=== PATIENT | female | born 2000 | race Caucasian/White ===

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

== ENCOUNTER 2021-07-19 23:48 | Emergency (ER) | payer SELFPAY ==
[~2021-07-19] VITALS: Ht 160 cm; Wt 64.4 kg
[~2021-07-19 23:48] MED LIST changes: +METH-313 PO
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
[2021-07-20] MEDS ORDERED: RX-NAPROXEN (NAPROSYN) 250 MG TAB PPK#4 PO STA (00:50)
[2021-07-20] MEDS ORDERED: NAPR500T8 PO (00:52)
[2021-07-20] MEDS ORDERED: TRAM-42 PO ×2 (00:52→00:53)
[2021-07-20 01:02] VITALS: BP 132/76
--- NOTE | 2021-07-20 07:24 | Diagnostic Imaging Report ---
KNEE, RIGHT, 4 VIEWS OR > COMPARISON: None available. INDICATION: Right knee pain TECHNIQUE: Non-weight bearing AP, oblique, sunrise and lateral views of the right knee knee. FINDINGS: No fracture or traumatic malalignment. The joint spaces are well maintained. No knee joint effusion. IMPRESSION: Negative right knee radiographs. Dictated by: Dictated on workstation # [id number]
== END 2021-07-20 01:02 | disposition home or self-care (01) ==
LOC: EDUNIT# 23:48 → ER 23:56
DX: S83.91XA Sprain of unspecified site of right knee, initial encounter (principal); X50.1XXA Overexertion from prolonged static or awkward postures, initial encounter; Y93.72 Activity, wrestling
CPT/HCPCS: 73564

== ENCOUNTER 2021-08-12 00:46 | Emergency (ER) | payer OTHER ==
[~2021-08-12] VITALS: Ht 160 cm; Wt 64.4 kg
[~2021-08-12 00:46] MED LIST changes: +NAPR500T8 PO; +TRAM-42 PO
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
[2021-08-12 01:16] LABS: BASOPHILS % (AUTO) 0 % (0-10); EOSINOPHILS # (AUTO) 0.2 10^3/uL (0.0-0.3); EOSINOPHILS % (AUTO) 2 % (0-10); HEMATOCRIT 38 % (35-52); HEMOGLOBIN 12.6 g/dL (11.5-16.0); LYMPHOCYTES # (AUTO) 1.9 10^3/uL (1.0-4.0); LYMPHOCYTES % (AUTO) 26 % (12-44); MEAN CORPUSCULAR HEMOGLOBIN 29 pg (25-34); MEAN CORPUSCULAR HGB CONC 33 g/dL (32-36); MEAN CORPUSCULAR VOLUME 87 fL (80-99); MEAN PLATELET VOLUME 8.9 fL (9.0-12.2); MONOCYTES # (AUTO) 0.4 10^3/uL (0.0-1.0); MONOCYTES % (AUTO) 6 % (0-12); NEUTROPHILS # (AUTO) 4.9 10^3/uL (1.8-7.8); NEUTROPHILS % (AUTO) 66 % (42-75); PLATELET COUNT 266 10^3/uL (130-400); WHITE BLOOD COUNT 7.4 10^3/uL (4.3-11.0)
[2021-08-12 01:27] LABS: CHLORIDE 106 MMOL/L (98-107); INR 0.9 (0.8-1.4); POTASSIUM 3.7 MMOL/L (3.6-5.0); PROTHROMBIN TIME PATIENT 12.3 SEC (12.2-14.7); SODIUM 138 MMOL/L (135-145)
[2021-08-12 01:28] LABS: CALCIUM 8.8 MG/DL (8.5-10.1)
[2021-08-12 01:29] LABS: GLUCOSE 127 MG/DL (70-105)
[2021-08-12 01:30] LABS: CARBON DIOXIDE 20 MMOL/L (21-32)
[2021-08-12 01:31] LABS: BILIRUBIN,TOTAL 0.4 MG/DL (0.1-1.0)
[2021-08-12 01:33] LABS: ALKALINE PHOSPHATASE 33 U/L (40-136); GFR ESTIMATED 107
[2021-08-12 01:34] LABS: BUN/CREATININE RATIO 16
[2021-08-12 01:36] LABS: ALANINE AMINOTRANSFERASE 10 U/L (0-55)
[2021-08-12] MEDS ORDERED: NS 100 ML (IVPB) BAG IV ONE (02:15)
[2021-08-12] MEDS ORDERED: IOHEXOL 350 MG/ML 100 ML (OMNIPAQUE 350) VIAL IV ONE (02:15)
[2021-08-12] MEDS ORDERED: HOLD METFORMIN - RECEIVED CONTRAST 20 ML VIAL IV SCH (02:15)
[2021-08-12] MEDS ORDERED: CATHETER FLUSH 10 ML SYR IV PRN (02:15)
[2021-08-12 02:24] LABS: BILIRUBIN,URINE NEGATIVE (NEGATIVE); CLARITY,URINE CLEAR; COLOR,URINE YELLOW; GLUCOSE, URINE (UA) NEGATIVE (NEGATIVE); KETONES,URINE NEGATIVE (NEGATIVE); LEUKOCYTE ESTERASE ,URINE NEGATIVE (NEGATIVE); NITRITE,URINE NEGATIVE (NEGATIVE); PH,URINE 6.5 (5-9); PROTEIN,URINE NEGATIVE (NEGATIVE)
[2021-08-12 02:41] LABS: AMPHETAMINE SCREEN, URINE NEGATIVE (NEGATIVE); BACTERIA,URINE NEGATIVE /HPF; BARBITURATE SCREEN URINE NEGATIVE (NEGATIVE); BENZODIAZEPINES SCREEN URINE NEGATIVE (NEGATIVE); CANNABINOID SCREEN, URINE NEGATIVE (NEGATIVE); COCAINE SCREEN URINE NEGATIVE (NEGATIVE); METHADONE STAT NEGATIVE (NEGATIVE); METHAMPHETAMINE SCREEN URINE S NEGATIVE (NEGATIVE); OPIATE SCREEN URINE NEGATIVE (NEGATIVE); OXYCODONE STAT NEGATIVE (NEGATIVE); PROPOXYPHENE STAT NEGATIVE (NEGATIVE); TRICYCLIC ANTIDEPRESSANTS SCRE NEGATIVE (NEGATIVE); WBC,URINE 0-2 /HPF
[2021-08-12] MEDS ORDERED: NAPR500T8 PO (03:49)
[2021-08-12] MEDS ORDERED: CYCL10TA25 PO (03:49)
[2021-08-12 03:50] VITALS: BP 108/69
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
== END 2021-08-12 03:56 | disposition home or self-care (01) ==
LOC: EDUNIT# 00:46 → ER 00:48
DX: M25.562 Pain in left knee (principal); M25.561 Pain in right knee; M25.551 Pain in right hip
CPT/HCPCS: 70450; 71045; 71260; 72125; 72170; 73552; 73562 ×2; 74177; 80053; 80306; 81000; 84703; 85025; 85610; 85730; 93041; 99284; G0480; 36415; 80320

== ENCOUNTER 2022-10-08 22:37 | Observation (INO) | payer SELFPAY ==
[~2022-10-08 22:37] MED LIST changes: +CYCL10TA25 PO
[2022-10-08 23:15] LABS: BASOPHILS % (AUTO) 0 % (0-10); EOSINOPHILS # (AUTO) 0.2 10^3/uL (0.0-0.3); EOSINOPHILS % (AUTO) 1 % (0-10); HEMATOCRIT 35 % (35-52); HEMOGLOBIN 11.9 g/dL (11.5-16.0); LYMPHOCYTES # (AUTO) 1.8 10^3/uL (1.0-4.0); LYMPHOCYTES % (AUTO) 14 % (12-44); MEAN CORPUSCULAR HEMOGLOBIN 29 pg (25-34); MEAN CORPUSCULAR HGB CONC 34 g/dL (32-36); MEAN CORPUSCULAR VOLUME 85 fL (80-99); MEAN PLATELET VOLUME 9.3 fL (9.0-12.2); MONOCYTES # (AUTO) 0.5 10^3/uL (0.0-1.0); MONOCYTES % (AUTO) 4 % (0-12); NEUTROPHILS # (AUTO) 10.3 10^3/uL (1.8-7.8); NEUTROPHILS % (AUTO) 81 % (42-75); PLATELET COUNT 273 10^3/uL (130-400); WHITE BLOOD COUNT 12.7 10^3/uL (4.3-11.0)
[2022-10-08] MEDS ORDERED: morphine INJ 10 MG/ML 1ML (SYR OR VIAL) IVP STA (23:15)
[2022-10-08 23:30] LABS: ALBUMIN 3.6 GM/DL (3.2-4.5)
[2022-10-08 23:31] LABS: INR 0.9 (0.8-1.4); POTASSIUM 3.5 MMOL/L (3.6-5.0)
[2022-10-08 23:32] LABS: CALCIUM 8.3 MG/DL (8.5-10.1)
[2022-10-08 23:33] LABS: TOTAL PROTEIN 6.3 GM/DL (6.4-8.2)
[2022-10-08 23:35] LABS: BILIRUBIN,TOTAL 0.2 MG/DL (0.1-1.0)
[2022-10-08 23:37] LABS: CREATININE SERUM 0.69 MG/DL (0.60-1.30)
[2022-10-09] VITALS (12 sets, daily range): BP systolic 90–104; BP diastolic 44–81
[2022-10-09] MEDS ORDERED: morphine INJ 10 MG/ML 1ML (SYR OR VIAL) IVP STA (00:40)
--- NOTE | 2022-10-09 01:26 | ED GU-Female ---
General Chief Complaint: OB < 20 WEEKS Stated Complaint: VAG BLEEDING Nursing Triage Note: TO ED VIA [facility] TO ROOM 10 WITH C/O EXCESSIVE VAGINAL BLEEDING AFTER TAKNG MISOPROSTOL 200MCG TO INDUCE AT 2100. PT STATES SHE IS APPROX 8 WEEKS . C/O ABD CRAMPING. 22G IV STARTED TO RIGHT FOREARM BY EMS WITH NS INFUSING. Source: patient Exam Limitations: no limitations History of Present Illness Date Seen by Provider: Oct 08, 2022 Time Seen by Provider: 22:39 Initial Comments This 21-year-old young lady presents to the emergency room via [facility] with abdominal cramping and vaginal hemorrhaging after taking the first 3 doses of the two-step chemical . She took mifepristone at approximately 0100 on October 07 and took two tablets of misoprostol within 1 hour of arrival to the ER. She developed severe abdominal cramping and vaginal hemorrhaging about 30 minutes after taking the misoprostol. EMS describes a very large amount of bleeding at scene which is now soaking through their blankets on the cot. Patient feels lightheaded and weak. She is pale in appearance. Initial systolic blood pressure for EMS was unmeasurable. A second systolic blood press ure was 90. IV fluids were initiated in route to the ER. Patient denies any significant past medical history. She was reportedly at approximately 8 weeks gestational age. The chemical was prescribed by an [id number] provider through videoconferencing. No in person exam was performed and no ultrasound confirming gestational age or intrauterine was performed. Allergies and Home Medications Allergies Coded Allergies: No Known Drug Allergies (Unverified , 03/23/09) Patient Home Medication List Home Medication List Reviewed: Yes Amoxicillin (Amoxil) 400 Mg/5 Ml Susp.recon, 6.5 ML PO BID Prescribed by: MARCI HOOK on 03/23/09 1125 Cyclobenzaprine HCl (Cyclobenzaprine HCl) 10 Mg Tablet, 10 MG PO Q8H PRN for SPASMS Prescribed by: HERBERT POST on 08/12/21 0349 Methocarbamol (Robaxin-750) 750 Mg Tablet, 750 MG PO Q4H PRN for PAIN-MODERATE (5-7) Prescribed by: BOOGIE PEPE on 10/25/192036 Naproxen (Naproxen) 500 Mg Tablet.dr, 500 MG PO BID Prescribed by: HERBERT POST on 07/20/2151 Naproxen (Naproxen) 500 Mg Tablet.dr, 500 MG PO BID Prescribed by: HERBERT POST on 08/12/21 034 Ondansetron (Ondansetron Odt) 4 Mg Tab.rapdis, 4 MG PO Q6H PRN for NAUSEA/VOMITING Prescribed by: KAMILLA HENRIQUEZ on 10/05/191941 Tramadol HCl (Ultram) 50 Mg Tablet, 50 MG PO Q4H Prescribed by: HERBERT POST on 07/20/2153 Review of Systems Review of Systems Constitutional: see HPI EENTM: no symptoms reported Respiratory: no symptoms reported Cardiovascular: see HPI Gastrointestinal: see HPI Genitourinary: see HPI : Yes Musculoskeletal: no symptoms reported Skin: see HPI Psychiatric/Neurological: No Symptoms Reported Endocrine: No Symptoms Reported Hematologic/Lymphatic: No Symptoms Reported Past Erdnzaq-Hnxqsn-Idrfkm Hx Patient Social History Tobacco Use?: No Substance use?: No Alcohol Use?: No Immunizations Up To Date Tetanus Booster (TDap): Less than 5yrs Influenza Vaccine Up-to-Date: No; Not Current First/Initial COVID19 Vaccinat: "A COUPLE MONTHS AGO" Second COVID19 Vaccination Ba: "A COUPLE MONTHS AGO" 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: [employer] Seasonal Allergies Seasonal Allergies: No Past Medical History Surgery/Hospitalization HX: RIGHT KNEE DISLOCATION, DEPRESSION Surgeries: No Respiratory: No Cardiac: No Neurological: No : Yes Reproductive Disorders: No Sexually Transmitted Disease: No Gastrointestinal: No Musculoskeletal: No Endocrine: No Cancer: No Psychosocial: Yes Depression Integumentary: No Blood Disorders: No Adverse Reaction/Blood Tranf: No Physical Exam Vital Signs Vital Signs - First Documented 10/08/22 22:42 Temp 37.0 Pulse 88 Resp 18 B/P (MAP) 99/83 (88) Pulse Ox 97 O2 Delivery Room Air Capillary Refill : Less Than 3 Seconds Height, Weight, BMI Height: 5'4.00" Weight: 145lbs. oz. [id number]; 25.00 BMI Method:Stated General Appearance: WD/WN, moderate distress HEENT: normal ENT inspection Neck: normal inspection Cardiovascular: regular rate, rhythm, no edema, no murmur Respiratory: lungs clear, normal breath sounds, no respiratory distress Gastrointestinal: normal bowel sounds, soft, tenderness (minimal lower abdominal tenderness) Genital/Rectal: other (heavy vaginal bleeding) Extremities: normal inspection, no pedal edema Neurologic/Psychiatric: no motor/sensory deficits, alert, oriented x 3, other (anxious and distressed) Skin: normal color, warm/dry Progress/Results/Core Measures Suspected Sepsis SIRS Temperature: Pulse: 88 Respiratory Rate: 18 Laboratory Tests 10/08/22 23:00: White Blood Count 12.7H 10/09/22 05:24: White Blood Count 11.1H Blood Pressure 99 /83 Mean: 88 Laboratory Tests 10/08/22 23:00: Creatinine 0.69, INR Comment 0.9, Platelet Count 273, Total Bilirubin 0.2 10/09/22 05:24: Platelet Count 215 Results/Orders Lab Results Laboratory Tests Test 10/08/22 23:00 10/09/22 05:24 Range/Units White Blood Count 12.7 H 11.1 H 4.3-11.0 10^3/uL Red Blood Count 4.09 3.82 3.80-5.11 10^6/uL Hemoglobin 11.9 11.0 L 11.5-16.0 g/dL Hematocrit 35 32 L 35-52 % Mean Corpuscular Volume 85 84 80-99 fL Mean Corpuscular Hemoglobin 29 29 25-34 pg Mean Corpuscular Hemoglobin Concent 34 34 32-36 g/dL Red Cell Distribution Width 12.4 13.2 10.0-14.5 % Platelet Count 273 215 130-400 10^3/uL Mean Platelet Volume 9.3 9.5 9.0-12.2 fL Immature Granulocyte % (Auto) 0 0 % Neutrophils (%) (Auto) 81 H 77 H 42-75 % Lymphocytes (%) (Auto) 14 17 12-44 % Monocytes (%) (Auto) 4 5 0-12 % Eosinophils (%) (Auto) 1 1 0-10 % Basophils (%) (Auto) 0 0 0-10 % Neutrophils # (Auto) 10.3 H 8.6 H 1.8-7.8 10^3/uL Lymphocytes # (Auto) 1.8 1.9 1.0-4.0 10^3/uL Monocytes # (Auto) 0.5 0.5 0.0-1.0 10^3/uL Eosinophils # (Auto) 0.2 0.1 0.0-0.3 10^3/uL Basophils # (Auto) 0.0 0.0 0.0-0.1 10^3/uL Immature Granulocyte # (Auto) 0.1 0.0 0.0-0.1 10^3/uL Prothrombin Time 13.0 12.2-14.7 SEC INR Comment 0.9 0.8-1.4 Activated Partial Thromboplast Time 27 24-35 SEC Sodium Level 134 L 135-145 MMOL/L Potassium Level 3.5 L 3.6-5.0 MMOL/L Chloride Level 105 98-107 MMOL/L Carbon Dioxide Level 20 L 21-32 MMOL/L Anion Gap 9 5-14 MMOL/L Blood Urea Nitrogen 7 7-18 MG/DL Creatinine 0.69 0.60-1.30 MG/DL Estimat Glomerular Filtration Rate 127 BUN/Creatinine Ratio 10 Glucose Level 124 H 70-105 MG/DL Calcium Level 8.3 L 8.5-10.1 MG/DL Corrected Calcium 8.6 8.5-10.1 MG/DL Total Bilirubin 0.2 0.1-1.0 MG/DL Aspartate Amino Transf (AST/SGOT) 18 5-34 U/L Alanine Aminotransferase (ALT/SGPT) 20 0-55 U/L Alkaline Phosphatase 35 L 40-136 U/L Total Protein 6.3 L 6.4-8.2 GM/DL Albumin 3.6 3.2-4.5 GM/DL Human Chorionic Gonadotropin, Quant [id number] H 92279 H <5 MIU/ML My Orders Orders - CHANO MCKEON MD Ob Transvaginal [id number] (10/08/22 22:46) Red Cells Leukocytes Reduced (10/08/22 22:48) Type And Screen (10/08/22 22:48) Cbc With Automated Diff (10/08/22 22:49) Comprehensive Metabolic Panel (10/08/22 22:49) Hcg,Quantitative (10/08/22 22:49) Protime With Inr (10/08/22 22:49) Partial Thromboplastin Time (10/08/22 22:49) Morphine Injection (Morphine Injection (10/08/22 23:15) Morphine Injection (Morphine Injection (10/09/22 00:40) Ns Iv 500 Ml (Sodium Chloride 0.9%) (10/09/22 01:30) Vital Signs/I&O 10/08/22 10/09/22 10/09/22 10/09/22 22:42 01:40 02:00 02:11 Temp 37.0 35.6 36.0 36.0 Pulse 88 89 76 82 Resp 18 16 16 B/P (MAP) 99/83 (88) 91/56 98/81 98/81 Pulse Ox 97 99 100 100 O2 Delivery Room Air Room Air Room Air Room Air 10/09/22 10/09/22 10/09/22 10/09/22 02:35 02:50 03:04 03:15 Temp 36.0 37.2 Pulse 77 72 78 77 Resp 16 16 16 16 B/P (MAP) 94/66 103/57 (72) 96/44 (61) 90/57 (68) Pulse Ox 100 100 100 O2 Delivery Room Air Room Air Room Air Room Air 10/09/22 10/09/22 10/09/22 10/09/22 03:30 04:00 04:30 05:00 Pulse 80 77 69 75 Resp 16 16 16 16 B/P (MAP) 96/55 (69) 93/54 (67) 104/56 (72) 94/52 (66) Pulse Ox 100 100 100 100 O2 Delivery Room Air Room Air Room Air Room Air 10/09/22 06:00 Pulse 75 Resp 16 B/P (MAP) 91/53 (66) Pulse Ox 100 O2 Delivery Room Air 10/09/22 00:00 Intake Total 100 ml Balance 100 ml Capillary Refill : Less Than 3 Seconds Blood Pressure Mean: 88 Progress Note : Time: 01:23 Progress Note Patient received a 1 L normal saline bolus as initiated by EMS. This did resuscitate her blood pressure. She has had a few scattered systolic blood pr essures in the 60s to 90s. Most blood pressures have been normotensive with some blood pressures as high as the 110s. Because of the intermittent hypotension despite a liter of IVF, she will receive a unit of PRBC. A second unit is being held. She is still having some slower bleeding. Case was reviewed with Dr. JASSO. Patient will be admitted and observed. Ultrasound was discussed with the business systems technician. Thickened endometrium without intrauterine gestation was noted. No evidence of ectopic was seen. Radiologist report from [facility] did comment ectopic cannot be excluded in the absence of identifying an intrauterine , but the business systems technician did not see any evidence of an ectopic . Patient was treated with morphine 2 mg previously. Repeat dosing is being held until blood pressure improves. I am ordering a repeat hCG and CBC for later in the morning. Patient is being admitted to women services. Patient's blood type was a positive. Diagnostic Imaging Diagonstic Imaging: Ultrasound Plain Films/CT/US/NM/MRI: abdomen Comments Pelvic ultrasound was obtained. Results were discussed with the business systems technician and the radiologist report was reviewed. There was thickened endometrium without intrauterine gestation. There is no evidence of ectopic . Radiologist commented ectopic cannot be excluded since an intrauterine was not visualized. Departure Impression Primary Impression: Complication following medical Additional Impressions: Vaginal hemorrhage Hypotension due to blood loss Disposition: ADMITTED INPATIENT Condition: Improved Departure-Patient Inst. Referrals: [facility] (PCP/Family) Primary Care Physician Copy Copies To 1: CECILIO JASSO MD, JOSHUA T MD Oct 09, 2022 01:26
[2022-10-09] MEDS ORDERED: NS IV 500 ML 500 ML ONE (01:30)
[2022-10-09] MEDS ORDERED: NS IV 1000 ML 1,000 ML IV SCH (03:00)
[2022-10-09] MEDS ORDERED: oxyCODONE/APAP 5/325MG (PERCOCET 5) TABLET PO PRN (03:00)
[2022-10-09] MEDS ORDERED: KETOROLAC 30 MG/ML VIAL IVP PRN (03:00)
[2022-10-09] MEDS ORDERED: NS IV 1000 ML 1,000 ML ONE (03:04)
[2022-10-09 05:47] LABS: BASOPHILS % (AUTO) 0 % (0-10); EOSINOPHILS # (AUTO) 0.1 10^3/uL (0.0-0.3); EOSINOPHILS % (AUTO) 1 % (0-10); HEMATOCRIT 32 % (35-52); LYMPHOCYTES # (AUTO) 1.9 10^3/uL (1.0-4.0); LYMPHOCYTES % (AUTO) 17 % (12-44); MEAN CORPUSCULAR HEMOGLOBIN 29 pg (25-34); MEAN CORPUSCULAR HGB CONC 34 g/dL (32-36); MEAN CORPUSCULAR VOLUME 84 fL (80-99); MEAN PLATELET VOLUME 9.5 fL (9.0-12.2); MONOCYTES # (AUTO) 0.5 10^3/uL (0.0-1.0); MONOCYTES % (AUTO) 5 % (0-12); NEUTROPHILS # (AUTO) 8.6 10^3/uL (1.8-7.8); NEUTROPHILS % (AUTO) 77 % (42-75); PLATELET COUNT 215 10^3/uL (130-400); WHITE BLOOD COUNT 11.1 10^3/uL (4.3-11.0)
--- NOTE | 2022-10-09 07:58 | Diagnostic Imaging Report ---
PROCEDURE: Pelvic complete, transabdominal and transvaginal sonogram. Limited pelvic doppler. TECHNIQUE: Multiple real-time grayscale images were obtained of the pelvis in various projections transabdominally and transvaginally. Limited pelvic duplex images were obtained. HISTORY: Reported history of with vaginal bleeding. COMPARISON: None available. FINDINGS: Uterus: The uterus is anteverted and measures 8.6 x 4.4 x 5.4 cm. The myometrium is homogeneous without fibroids. Endometrium: The endometrium is increased in thickness and measures 2.0 cm. The endometrium is heterogeneous without fluid or visualized gestational sac. Adnexa: Both ovaries have a normal physiologic appearance. The right ovary measures 2.7 x 1.2 x 1.1 cm and the left ovary measures 2.2 x 1.2 x 2.1 cm. Duplex images reveal normal vascular flow to both ovaries. No adnexal mass. Other: There is no free fluid within the pelvis. IMPRESSION: 1. No visualized intrauterine gestational sac. Findings can be seen with early, failed, or nonvisualized ectopic . Recommend close clinical follow-up with beta hCG and ultrasound as indicated. 2. Agree with preliminary interpretation. Dictated by: Dictated on workstation # [id number]
--- NOTE | 2022-10-09 11:05 | History & Physical ---
History and Physical Date Seen by Provider: Oct 09, 2022 Time Seen by Provider: 10:58 This patient is a 21-year-old 1 female who was admitted via the emergency department last evening for vaginal hemorrhage due to induced miscarriage. Patient reports that she conceived while using the NuvaRing. The assumption was that she was around 8 weeks . Apparently there was no confirmation of that fact. Patient presented to the emergency department with low blood pressure and apparently there was concern for hypovolemic shock. I was consulted by phone by Dr. Fragoso for recommendations for management of her bleeding. Report to me was that her blood pressure initially was undetectable. However since patient was apparently recovering in the short period of time between presentation and this phone call from the emergency department which Dr. Fragoso relayed to me was about 17 minutes. He reported that she was bleeding fairly briskly however no lab work was available, no ultrasound was available, no pelvic exam had been performed, I was unable to offer any specific management recommendation for her bleeding other than obtain ultrasound to evaluate the status and condition of the uterus/ and of course routine lab work for baseline hemoglobin. At that time Dr. Fragoso indicated that he would obtain those studies and then call me back. After several hours I did receive another call from the emergency department patient at that point was bleeding apparently like a heavy period. She had been given or was given a single unit of packed red cells. Her initial quantitative hCG was 170,000. Her initial hemoglobin was 11.6. As she was hemodynamically stable by this point plan was for admission and observation. This morning the patient reports having bleeding like a period. She no longer complaining of cramps pain or pressure. She is lucid. She has hungry and has been allowed a diet as she has had no significant bleeding since admission to [facility]. She is requesting discharge home. Patient reports no allergies Patient reports no medications other than NuvaRing that she was using at the time of conception Patient did not obtain inducing drugs by some means. She had taken those medications to induce the miscarriage/. Surgical history is none Family history is noncontributory Social history patient denies drugs tobacco or alcohol use HEENT exam is normal Neck is supple no lymphadenopathy no thyromegaly Abdomen soft nontender nondistended Extremities show no clubbing or cyanosis. There is no Homans' sign. Pelvic exam is deferred Lab work is as follows Laboratory Tests Test 10/08/22 23:00 10/09/22 05:24 Range/Units White Blood Count 12.7 H 11.1 H 4.3-11.0 10^3/uL Red Blood Count 4.09 3.82 3.80-5.11 10^6/uL Hemoglobin 11.9 11.0 L 11.5-16.0 g/dL Hematocrit 35 32 L 35-52 % Mean Corpuscular Volume 85 84 80-99 fL Mean Corpuscular Hemoglobin 29 29 25-34 pg Mean Corpuscular Hemoglobin Concent 34 34 32-36 g/dL Red Cell Distribution Width 12.4 13.2 10.0-14.5 % Platelet Count 273 215 130-400 10^3/uL Mean Platelet Volume 9.3 9.5 9.0-12.2 fL Immature Granulocyte % (Auto) 0 0 % Neutrophils (%) (Auto) 81 H 77 H 42-75 % Lymphocytes (%) (Auto) 14 17 12-44 % Monocytes (%) (Auto) 4 5 0-12 % Eosinophils (%) (Auto) 1 1 0-10 % Basophils (%) (Auto) 0 0 0-10 % Neutrophils # (Auto) 10.3 H 8.6 H 1.8-7.8 10^3/uL Lymphocytes # (Auto) 1.8 1.9 1.0-4.0 10^3/uL Monocytes # (Auto) 0.5 0.5 0.0-1.0 10^3/uL Eosinophils # (Auto) 0.2 0.1 0.0-0.3 10^3/uL Basophils # (Auto) 0.0 0.0 0.0-0.1 10^3/uL Immature Granulocyte # (Auto) 0.1 0.0 0.0-0.1 10^3/uL Prothrombin Time 13.0 12.2-14.7 SEC INR Comment 0.9 0.8-1.4 Activated Partial Thromboplast Time 27 24-35 SEC Sodium Level 134 L 135-145 MMOL/L Potassium Level 3.5 L 3.6-5.0 MMOL/L Chloride Level 105 98-107 MMOL/L Carbon Dioxide Level 20 L 21-32 MMOL/L Anion Gap 9 5-14 MMOL/L Blood Urea Nitrogen 7 7-18 MG/DL Creatinine 0.69 0.60-1.30 MG/DL Estimat Glomerular Filtration Rate 127 BUN/Creatinine Ratio 10 Glucose Level 124 H 70-105 MG/DL Calcium Level 8.3 L 8.5-10.1 MG/DL Corrected Calcium 8.6 8.5-10.1 MG/DL Total Bilirubin 0.2 0.1-1.0 MG/DL Aspartate Amino Transf (AST/SGOT) 18 5-34 U/L Alanine Aminotransferase (ALT/SGPT) 20 0-55 U/L Alkaline Phosphatase 35 L 40-136 U/L Total Protein 6.3 L 6.4-8.2 GM/DL Albumin 3.6 3.2-4.5 GM/DL Human Chorionic Gonadotropin, Quant [id number] H 90820 H <5 MIU/ML Vital Signs Date Time Temp Pulse Resp B/P (MAP) Pulse Ox O2 Delivery O2 Flow Rate FiO2 10/09/22 08:25 36.3 78 16 90/58 (69) 99 Room Air 10/09/22 06:00 75 16 91/53 (66) 100 Room Air 10/09/22 05:00 75 16 94/52 (66) 100 Room Air 10/09/22 04:30 69 16 104/56 (72) 100 Room Air 10/09/22 04:00 77 16 93/54 (67) 100 Room Air 10/09/22 03:30 80 16 96/55 (69) 100 Room Air 10/09/22 03:15 77 16 90/57 (68) 100 Room Air 10/09/22 03:04 78 16 96/44 (61) 100 Room Air 10/09/22 02:50 37.2 72 16 103/57 (72) 100 Room Air 10/09/22 02:35 36.0 77 16 94/66 Room Air 10/09/22 02:11 36.0 82 16 98/81 100 Room Air 10/09/22 02:00 36.0 76 16 98/81 100 Room Air 10/09/22 01:40 35.6 89 91/56 99 Room Air 10/08/22 22:42 37.0 88 18 99/83 (88) 97 Room Air I & O 10/09/22 07:00 Intake Total 200 ml Balance 200 ml Vital signs are noted. Significantly patient does have a relatively low blood pressure but she is a young healthy woman. Quite notably she does not have an elevated pulse Assessment and plan Patient is status post medically induced . She did experience apparently fairly brisk bleeding but now that has resolved. Ultrasound obtained last evening showed an empty uterus with a 2 cm endometrial stripe which would be appropriate. Patient understands that eventually she will have a period and that tissue will slough and likely result in a heavy menstrual period. She should expect that to occur in the next couple of weeks. Patient is hemodynamically stable she is no longer having significant bleeding plan is for discharge home with follow-up in clinic Medically induced with hemorrhage Allergies and Home Medications Allergies Coded Allergies: No Known Drug Allergies (Unverified , 03/23/09) Patient Home Medication List Home Medication List Reviewed: Yes Amoxicillin (Amoxil) 400 Mg/5 Ml Susp.recon, 6.5 ML PO BID Prescribed by: MARCI HOOK on 03/23/09 112 Cyclobenzaprine HCl (Cyclobenzaprine HCl) 10 Mg Tablet, 10 MG PO Q8H PRN for SPASMS Prescribed by: HERBERT POST on 08/12/21348 Methocarbamol (Robaxin-750) 750 Mg Tablet, 750 MG PO Q4H PRN for PAIN-MODERATE (5-7) Prescribed by: BOOGIE PEPE on 10/25/192036 Naproxen (Naproxen) 500 Mg Tablet.dr, 500 MG PO BID Prescribed by: HERBERT POST on 07/20/2151 Naproxen (Naproxen) 500 Mg Tablet.dr, 500 MG PO BID Prescribed by: HERBERT POST on 08/12/21348 Ondansetron (Ondansetron Odt) 4 Mg Tab.rapdis, 4 MG PO Q6H PRN for NAUSEA/VOMITING Prescribed by: KAMILLA HENRIQUEZ on 10/05/191941 Tramadol HCl (Ultram) 50 Mg Tablet, 50 MG PO Q4H Prescribed by: HERBERT POST on 07/20/2153 CECILIO JASSO MD Oct 09, 2022 11:05
--- NOTE | 2022-10-09 11:08 | Discharge Inst-Surgical ---
Discharge Inst-Surgical Depart Medication/Instructions New, Converted or Re-Newed RX: Other Consults/Follow Up Orders & Referrals Return to clinic as scheduled Use Motrin as prescribed Return to emergency department for significant bleeding or other concerns Activity Activity as Tolerated: No Diet Discharge Diet: No Restrictions CECILIO JASSO MD Oct 09, 2022 11:08
== END 2022-10-09 11:55 | disposition home or self-care (01) ==
LOC: EDUNIT# 22:37 → ER 22:39 → LDRP 10-09 01:19
PROVIDERS: ADMIT Obstetrics & Gynecology; ATTEND Obstetrics & Gynecology
DX: O04.6 Delayed or excessive hemorrhage following (induced) termination of pregnancy (principal)
CPT/HCPCS: 76817; 80053; 84702 ×2; 85025 ×2; 85610; 85730; 86850; 86900; 86901; 86920; 96361; 96375; 99283; G0378; P9016; 36415